=== PATIENT | female | born 1970 | race Two or more races ===

== ENCOUNTER 2021-03-06 20:34 | Emergency (ER) | payer BC ==
[2021-03-06] MEDS ORDERED: Lactated Ringers 1,000 ML IV ONE (21:35)
[2021-03-06] MEDS ORDERED: Ondansetron 4 MG/2 ML SDV IVPUSH ONE (21:35)
[2021-03-06] MEDS ORDERED: Morphine 4 MG/ML Syringe IVPUSH ONE (21:35)
[2021-03-06] MEDS ORDERED: Sodium Chloride 0.9% 10 ML SDV FLUSH ONE (23:30)
[2021-03-06] MEDS ORDERED: Iopamidol 612 MG/ML 100 ML Bottle IVPUSH ONE (23:30)
[2021-03-07] MEDS ORDERED: Morphine 4 MG/ML Syringe IVPUSH ONE (00:47)
== END 2021-03-07 02:12 | disposition home or self-care (01) ==
LOC: JD.ED 20:34
DX: N13.2 Hydronephrosis with renal and ureteral calculous obstruction (principal); Z91.040 Latex allergy status; Z88.1 Allergy status to other antibiotic agents; Z88.5 Allergy status to narcotic agent; Z91.048 Other nonmedicinal substance allergy status; Z87.891 Personal history of nicotine dependence; Z20.822 Contact with and (suspected) exposure to COVID-19
CPT/HCPCS: 36415; 74177; 80053; 81001; 83605; 83690; 85025; 85610; 87635; 96374; 96375; 96376; 99284; J2270; J2405; J7120; Q9967; U0002

== ENCOUNTER 2021-03-09 20:16 | Emergency (ER) | payer BC ==
[2021-03-09] MEDS ORDERED: HYDROmorphone 1 MG/ML Syringe IVPUSH ONE ×2 (20:38→23:08)
[2021-03-09] MEDS ORDERED: Sodium Chloride 0.9% 1,000 ML IV SCH (20:45)
[2021-03-10] MEDS ORDERED: HYDROmorphone 1 MG/ML Syringe IVPUSH ONE (02:59)
== END 2021-03-10 03:15 ==
LOC: JD.ED 20:16
DX: N20.1 Calculus of ureter (principal); E03.9 Hypothyroidism, unspecified; Z88.1 Allergy status to other antibiotic agents; Z91.040 Latex allergy status; Z91.048 Other nonmedicinal substance allergy status; Z87.891 Personal history of nicotine dependence
CPT/HCPCS: 36415; 80048; 81001; 96374; 96376; 99285; J1170; J7030